=== PATIENT | female | born 1960 ===

== ENCOUNTER 2018-02-21 13:02 | Inpatient (IN) | payer OTHER ==
[~2018-02-21] VITALS: Ht 157.5 cm; Wt 82.6 kg
[2018-02-21] MEDS ORDERED: CARDIZEM60 MG PO (13:51)
[2018-02-21] MEDS ORDERED: ALDACTONE25 MG PO (13:52)
[2018-02-21] MEDS ORDERED: COZAAR100 MG PO (13:52)
[2018-02-21] MEDS ORDERED: ATIVAN0.5 MG PO (13:53)
[2018-02-21] MEDS ORDERED: LASIX20 MG PO (13:53)
[2018-02-21] MEDS ORDERED: CARDURA1 MG PO (13:53)
[2018-02-21] MEDS ORDERED: NEURONTIN300 MG PO (13:54)
[2018-02-21] MEDS ORDERED: CELEXA10 MG PO (13:54)
[2018-02-21] MEDS ORDERED: SULINDAC200 MG PO (13:55)
[2018-02-21] MEDS ORDERED: 8 HOUR650 MG PO (13:56)
[2018-03-01] MEDS ORDERED: GABAPENTIN800 MG PO (12:40)
[2018-03-01] MEDS ORDERED: DOCUSATE SODIU100 MG PO (12:40)
[2018-03-01] MEDS ORDERED: CIPROFLOXACIN750 MG PO (12:41)
[2018-03-01] MEDS ORDERED: CLONAZEPAM1 MG PO (12:42)
[2018-03-01] MEDS ORDERED: PERCOCET 5-3251 EACH PO (12:42)
[2018-03-01] MEDS ORDERED: ASA325 MG PO (12:48)
== END 2018-03-01 17:14 | DRG 460 ==
LOC: PED 02-28 05:00 → O/R 02-28 05:00 → SURG 02-28 12:45 → PED 02-28 15:40
PROVIDERS: Orthopaedic Surgery Orthopaedic Surgery of the Spine
PROC: 0SG30AJ Fusion of Lumbosacral Joint with Interbody Fusion Device, Posterior Approach, Anterior Column, Open Approach (ICD-10-PCS; 2018-02-28)
PROC: 0ST20ZZ Resection of Lumbar Vertebral Disc, Open Approach (ICD-10-PCS; 2018-02-28)
PROC: 0ST40ZZ Resection of Lumbosacral Disc, Open Approach (ICD-10-PCS; 2018-02-28)
PROC: 07DS3ZZ Extraction of Vertebral Bone Marrow, Percutaneous Approach (ICD-10-PCS; 2018-02-28)
PROC: 00NY0ZZ Release Lumbar Spinal Cord, Open Approach (ICD-10-PCS; principal; 2018-02-28 12:45)
DX: M43.17 Spondylolisthesis, lumbosacral region (principal); M48.07 Spinal stenosis, lumbosacral region; I10 Essential (primary) hypertension